=== PATIENT | male | born 1960 | race Caucasian/White ===

== ENCOUNTER 2021-09-19 20:28 | Emergency (ER) | payer OTHER ==
[~2021-09-19] VITALS: Ht 170.2 cm; Wt 74.8 kg
[~2021-09-19 20:28] MED LIST: AMOX500C2 PO; CHLO473M2 MM; IBUP-1957 PO
--- NOTE | 2021-09-19 21:41 | NUR ---
BIBSELF C/O LEFT SIDE ABD PAIN X 3-4 MONTHS, LEFT CALF PAIN SENT BY primary physician to r/o hernia and dvt. PATIENT ALERT AND ORIENTED X3. AMBULATORY WITH NON LABORED BREATHING IN BED 11 ON MONITOR AND POX AWAITING MD CLARKE.
[2021-09-19 22:24] LABS: BASOPHILS # (AUTO) 0.1 K/uL (0.0-0.2); BASOPHILS % (AUTO) 0.9 % (0.0-2.0); EOSINOPHILS % (AUTO) 3.7 % (0.0-6.0); HEMATOCRIT 42 % (39-51); HEMOGLOBIN 14.1 g/dL (13.5-17.5); LYMPHOCYTES # (AUTO) 1.6 K/uL (0.8-4.8); LYMPHOCYTES % (AUTO) 24.5 % (20.0-44.0); MEAN CORPUSCULAR HGB CONC 34 g/dl (31.0-36.0); MEAN CORPUSCULAR VOLUME 86 fL (80-96); MONOCYTES # (AUTO) 0.5 K/uL (0.1-1.30); MONOCYTES % (AUTO) 7.3 % (2.0-12.0); NEUTROPHILS # (AUTO) 4.1 K/uL (1.8-8.9); NEUTROPHILS % (AUTO) 63.6 % (43.0-81.0); PLATELET COUNT (AUTO) 182 K/uL (150-450); RED BLOOD CELL COUNT(AUTO) 4.83 MIL/uL (4.5-6.0); WHITE BLOOD COUNT (AUTO) 6.5 K/uL (4.3-11.0)
--- NOTE | 2021-09-19 22:35 | NUR ---
URINE COLLECTED AND SENT TO LAB
[2021-09-19 22:47] LABS: BILIRUBIN,DIRECT 0.2 mg/dL (0.0-0.2); BILIRUBIN,TOTAL 0.8 mg/dL (0.2-1.0); POTASSIUM 4.4 mmol/L (3.5-5.1); TOTAL PROTEIN, SERUM 7.8 g/dL (6.4-8.2)
[2021-09-19] MEDS ORDERED: CT SWABBABLE VALVE TRANS SET 1 EA INFUS.SET MC ONE (23:13)
[2021-09-19] MEDS ORDERED: IOHEXOL-300 100 ML VIAL IV ONE (23:13)
[2021-09-19] MEDS ORDERED: IV NS 0.9% 250 ML IV ONE (23:13)
[2021-09-19] MEDS ORDERED: IV NS 0.9% 1,000 ML IV ONE (23:30)
--- NOTE | 2021-09-19 23:57 | NUR ---
US TECH AT PT'S BEDSIDE
[2021-09-20 00:03] LABS: BILIRUBIN,URINE NEGATIVE (NEGATIVE); COLOR,URINE YELLOW (YELLOW); LEUKOCYTE ESTERASE ,URINE NEGATIVE (NEGATIVE); NITRITE, URINE NEGATIVE (NEGATIVE); PH,URINE 5.5 (5.0-8.0); PROTEIN,URINE NEGATIVE (NEGATIVE); UGLUCOSE NEGATIVE (NEGATIVE); UROBILINOGEN,URINE 0.2 EU/dL (0.2)
--- NOTE | 2021-09-20 00:12 | NUR ---
PER US TECH, DVT NEGATIVE; DR. ANDREA CATES AWARE.
[2021-09-20 00:47] VITALS: BP 128/77
--- NOTE | 2021-09-20 00:47 | NUR ---
Patient discharged to home in stable condition. Written and verbal after care instructions given. Patient verbalizes understanding of instruction.
== END 2021-09-20 01:06 | disposition home or self-care (01) ==
LOC: ER 20:31
DX: K85.90 Acute pancreatitis without necrosis or infection, unspecified (principal); R10.84 Generalized abdominal pain; M79.662 Pain in left lower leg; I10 Essential (primary) hypertension
CPT/HCPCS: 99285; 74177; 96360; 93971; 85025; 80048; 83690; 80076; 81003; 36415; 85730; J7030; J7050; Q9967